=== PATIENT | male | born 1955 | race Caucasian/White ===

== ENCOUNTER 2017-06-24 13:33 | Emergency (ER) | payer OTHER ==
[2017-06-24] MEDS ORDERED: Lidocaine 2% Jelly 10 ML Urojet MUCMEM ONE (14:04)
[2017-06-24] MEDS ORDERED: HYDROmorphone 1 MG/ML Syringe IVPUSH ONE (14:04)
[2017-06-24] MEDS ORDERED: Metoclopramide 10 MG/2 ML SDV IVPUSH ONE (14:04)
--- NOTE | 2017-06-24 14:08 | EDM.PDOC ---
ED HPI GENERAL MEDICAL PROBLEM - General Chief Complaint: Genitourinary Problem Stated Complaint: UNABLE TO URINATE Time Seen by Provider: 06/24/17 14:03 Source of Information: Reports: Patient, Family (spouse) History Limitations: Reports: No Limitations - History of Present Illness INITIAL COMMENTS - FREE TEXT/NARRATIVE: 61-year-old male presents to the ED with severe lower abdominal cramping pain and strong feeling of need to void but unable to do so. He underwent a robotic surgery with removal of his prostate gland about 1 month ago. He had been voiding well and his bowels been working well since surgery. Today he has not voided since 0400 hrs. this morning has drank 2//20 ounce glasses of water with no urine. He states he pushes really hard at Jg standing can push out a drop or 2 of urine only. He is expressing severe bladder spasms at this time with no position being comfortable. It is so she with development of nausea but he has not vomited yet. The nurses did a bladder scan and found only 150 mils of urine within his bladder. Onset: Today Onset Date: 06/24/17 Onset Time: 04:00 Duration: Hour(s): (Last time he voided with Xeroform 100 hours this morning) Location: Reports: Abdomen (Lower abdomen particularly suprapubically into his back) Quality: Reports: Ache, Other Severity: Severe (Strong cramping colicky pain) Improves with: Reports: None ( 10 on a 10) Worsens with: Reports: Other (Sitting makes things worse.) Context: Reports: Other (His had total prostatectomy about a month ago by Dr. Kohler robotic surgery.). Denies: Activity, Exercise, Lifting, Sick Contact, Trauma Associated Symptoms: Denies: Confusion, Chest Pain, cough w sputum, Diaphoresis , Fever/Chills, Headaches, Loss of Appetite, Malaise, Nausea/Vomiting, Rash, Seizure, Shortness of Breath, Syncope Treatments POCK[employer]ED [employer]: Reports: Other (see below) (None.) Bladder Pain Score (Numeric/FACES): 5 - Related Data Allergies Allergy/AdvReac Type Severity Reaction Status Date / Time levofloxacin [From Levaquin] Allergy Cannot Verified 06/24/17 13:44 Remember atorvastatin calcium AdvReac Joint Pain Verified 06/24/17 13:44 [From Lipitor] bisoprolol fumarate AdvReac Joint Pain Verified 06/24/17 13:44 [From Ziac] hydrochlorothiazide AdvReac Joint Pain Verified 06/24/17 13:44 [From Ziac] hydrocodone AdvReac Seizure Verified 06/24/17 13:44 oxycodone [Oxycodone] AdvReac Seizure Verified 06/24/17 13:44 Home Meds: Home Meds Amoxicillin [Amoxil] 2,000 mg PO ASDIRECTED 06/24/17 [History] FLUoxetine [PROzac] 40 mg PO DAILY 06/24/17 [History] HYDROmorphone [Dilaudid] 2 mg PO Q12H PRN 06/24/17 [History] Lisinopril [Zestril] 20 mg PO BEDTIME 06/24/17 [History] Nitrofurantoin Monohyd/M-Cryst [Macrobid 100 mg Capsule] 100 mg PO BID #14 capsule 06/24/17 [Rx] Pantoprazole Sodium [Protonix] 40 mg PO DAILY 06/24/17 [History] Past Medical History Cardiovascular History: Reports: High Cholesterol, Hypertension Gastrointestinal History: Reports: GERD Genitourinary History: Reports: Other (See Below) Other Genitourinary History: prostrate cancer and had surgery for this one month ago Musculoskeletal History: Reports: Osteoarthritis, Other (See Below) Other Musculoskeletal History: back surgery Psychiatric History: Reports: Depression Dermatologic History: Reports: Other (See Below) Other Dermatologic History: squamous cell skin cancer - Past Surgical History Musculoskeletal Surgical History: Reports: Knee Replacement, Shoulder Surgery Social & Family History - Tobacco Use Smoking Status *Q: Never Smoker - Recreational Drug Use Recreational Drug Use: No - Living Situation & Occupation Living situation: Reports: Occupation: Employed [facility] GENERAL - Review of Systems Review Of Systems: See Below Constitutional: Denies: Fever, Chills, Malaise, Weakness, Fatigue, Decreased Appetite, Weight Loss HEENT: Reports: No Symptoms Respiratory: Reports: No Symptoms Cardiovascular: Reports: No Symptoms Endocrine: Reports: No Symptoms GI/Abdominal: Reports: Abdominal Pain, Distension, Nausea. Denies: Constipation (See history of present illness), Hematemesis, Hematochezia, Melena , Stool Incontinence, Vomiting, Other : Reports: Urinary Retention, Other (Very strong severe presumed bladder spasms.) Musculoskeletal: Reports: Back Pain Skin: Reports: No Symptoms (Low back pain associated with the cramping in the suprapubic area) Neurological: Reports: No Symptoms Psychiatric: Reports: No Symptoms Hematologic/Lymphatic: Reports: No Symptoms Immunologic: Reports: No Symptoms ED EXAM, GI/ABD - Physical Exam Exam: See Below Exam Limited By: No Limitations General Appearance: Alert, Severe Distress Eyes: Bilateral: Normal Appearance (He is in obvious severe distress with no physician comfortable. Doesn't know whether to stand or lie down but he cannot sit. No jaundice.) Respiratory/Chest: No Respiratory Distress, Lungs Clear, Normal Breath Sounds, No Accessory Muscle Use, Respiratory Distress (Mild tachypnea due to) Cardiovascular: Normal Peripheral Pulses ( mild hyperventilation), Regular Rate , Rhythm, No Edema, No Gallop, No JVD, No Murmur, No Rub GI/Abdominal Exam: Normal Bowel Sounds, No Organomegaly (Hypoactive bowel sounds ), Pelvis Stable, Tender (Suprapubically.), Abnormal Bowel Sounds, Other ( Abdominal ang firm to palpation and dull to percussion from the umbilicus to the suprapubic area.) (Male) Exam: No Hernia, Circumcised, Suprapubic Fullness (Clinically he has much more than 150 mils of urine in his bladder.). No: Penile Lesions, Rash, Scrotal Swelling, Scrotum Tenderness (L), Scrotum Tenderness (R) Back Exam: Normal Inspection. No: CVA Tenderness (L), CVA Tenderness (R) Extremities: Normal Inspection, Normal Range of Motion, Non-Tender, No Pedal Edema, Normal Capillary Refill Neurological: Alert, Oriented, CN II-XII Intact, Normal Cognition Psychiatric: Other Skin Exam: Warm, Dry, Intact (In a lot of pain), Normal Color, No Rash Course - Vital Signs Last Recorded V/S: Last Vital Signs Temp 36.7 C 06/24/17 13:44 Pulse 95 06/24/17 13:44 Resp 17 06/24/17 13:44 BP 151/84 H 06/24/17 13:44 Pulse Ox 97 06/24/17 13:44 - Orders/Labs/Meds Orders: Active Orders 24 hr Category Date Time Status Insert Witt Catheter [Insert Urinary Catheter] [OM.PC] Care 06/24/17 14:15 Ordered Q24H Urinary Catheter Assessment [RC] ASDIRECTED Care 06/24/17 14:05 Active Abdomen 1V Flat [CR] Stat Exams 06/24/17 14:05 Taken CULTURE URINE [RM] Stat Lab 06/24/17 14:35 Received Dextrose 5%-0.9% NaCl [Dextrose 5%-Normal Saline] 1,000 Med 06/24/17 14:15 Active ml IV ASDIRECTED Medication Orders Dextrose/Sodium Chloride (Dextrose 5%-Normal Saline) 1,000 mls @ 250 mls/hr IV ASDIRECTED STEPHANIE Last Admin: 06/24/17 14:13 Dose: 250 mls/hr Labs: Laboratory Tests 06/24/17 06/24/17 06/24/17 Range/Units 14:05 14:05 14:25 WBC 10.49 H (4.23-9.07) K/mm3 RBC 4.00 L (4.63-6.08) M/mm3 Hgb 11.4 L (13.7-17.5) gm/L Hct 34.9 L (40.1-51.0) % MCV 87.3 (79.0-92.2) fl MCH 28.5 (25.7-32.2) pg MCHC 32.7 (32.2-35.5) g/dl RDW Std Deviation 42.9 (35.1-43.9) fL Plt Count 274 (163-337) K/mm3 MPV 8.4 L (9.4-12.3) fl Neutrophils % (Manual) 73 H (40-60) % Band Neutrophils % 1 (0-10) % Lymphocytes % (Manual) 17 L (20-40) % Atypical Lymphs % 0 % Monocytes % (Manual) 7 (2-10) % Eosinophils % (Manual) 1 (0.8-7.0) % Basophils % (Manual) 1 (0.2-1.2) Platelet Estimate Adequate Plt Morphology Comment Normal RBC Morph Comment Normal Sodium 140 (136-145) mEq/L Potassium 3.7 (3.5-5.1) mEq/L Chloride 104 (98-107) mEq/L Carbon Dioxide 23 (21-32) mEq/L Anion Gap 16.7 H (5-15) BUN 17 (7-18) mg/dL Creatinine 1.2 (0.7-1.3) mg/dL Est Cr Clr Drug Dosing 70.59 mL/min Estimated GFR (MDRD) > 60 (>60) mL/min BUN/Creatinine Ratio 14.2 (14-18) Glucose 113 H (74-106) mg/dL Calcium 9.4 (8.5-10.1) mg/dL Total Bilirubin 0.4 (0.2-1.0) mg/dL AST 15 (15-37) U/L ALT 26 (16-63) U/L Alkaline Phosphatase 74 (46-116) U/L C-Reactive Protein 0.3 (<1.0) mg/dL Total Protein 7.3 (6.4-8.2) g/dl Albumin 3.8 (3.4-5.0) g/dl Globulin 3.5 gm/dL Albumin/Globulin Ratio 1.1 (1-2) Urine Color Yellow (Yellow) Urine Appearance Slt cloudy H (Clear) Urine pH 6.0 (5.0-8.0) Ur Specific [place] 1.025 (1.005-1.030) Urine Protein 1+ H (Negative) Urine Glucose (UA) Negative (Negative) Urine Ketones Negative (Negative) Urine Occult Blood 2+ H (Negative) Urine Nitrite Positive H (Negative) Urine Bilirubin Negative (Negative) Urine Urobilinogen 0.2 (0.2-1.0) Ur Leukocyte Esterase 1+ H (Negative) Urine RBC 0-5 (0-5) /hpf Urine WBC 40-50 H (0-5) /hpf Ur Epithelial Cells 5-10 H (0-5) /hpf Urine Bacteria Many H (FEW) /hpf Urine Mucus Not seen (FEW) /hpf Meds: Medications Generic Name Dose Route Start Last Admin Trade Name Freq PRN Reason Stop Dose Admin Dextrose/Sodium Chloride 1,000 mls @ 250 mls/hr 06/24/17 14:15 06/24/17 14:13 Dextrose 5%-Normal Saline IV 250 mls/hr ASDIRECTED STEPHANIE Administration Discontinued Medications Generic Name Dose Route Start Last Admin Trade Name Freq PRN Reason Stop Dose Admin Hydromorphone HCl 1 mg 06/24/17 14:04 06/24/17 14:14 Dilaudid IVPUSH 06/24/17 14:05 1 mg ONETIME ONE Administration Lidocaine HCl 10 ml 06/24/17 14:04 06/24/17 14:16 Xylocaine 2% Jelly MUCMEM 06/24/17 14:05 10 ml ONETIME ONE Administration Metoclopramide HCl 7.5 mg 06/24/17 14:04 06/24/17 14:14 Reglan IVPUSH 06/24/17 14:05 7.5 mg ONETIME ONE Administration Nitrofurantoin Macrocrystals 100 mg 06/24/17 15:14 Macrobid PO 06/24/17 15:15 ONETIME ONE - Radiology Interpretation Free Text/Narrative:: 61-year-old male brought to the ED by his with severe lower abdominal pain. Patient had to differential robotic surgery with total prostatectomy for cancer of the prostate about a month ago. He states he had been voiding fine up until today. He has not voided since 0400 hrs. this morning. Feels a strong need to void but unable to do so. He can push on his evidence clear without a few drops of urine only. His bowel function had returned to normal and he is no longer taking any pain medication. He drank 220 ounce glasses of water so far today with no voiding. Pain at present is 10 out of 10. Nurses did bladder scan informed only 150 mils of urine in the bladder of note this is a new machine. Clinically he is distended in the lower abdomen and tender compatible with retention. Plan he'll be given IV Dilaudid 1 mg IV and Reglan 7.5 mg IV for pain relief. He will have urogenital lidocaine instilled into the penile urethra and a Witt catheter will be placed and left in place until we see what kind of drainage get and whether or not it relieves his pain. - Re-Assessments/Exams Free Text/Narrative Re-Assessment/Exam: 06/24/17 14:35: The Dilaudid given IV was partially successful in relieving some of his abdominal spastic pain. Nurses got 325 mils of clear urine out of the bladder with Witt catheterization which is left in place. Therefore appears that the severe bladder spasms were causing his retention. He'll be to be done. 06/24/17 14:51 patient is completely pain-free after the Witt catheter was placed. The urine drainage is clear without any stone or clot. Therefore his retention must of been due to severe spasm of the bladder neck. I will await the results of the urinalysis. The KUB shows increased stool throughout the right hemicolon but no signs of significant constipation. 06/24/17 14:53 White count is 10.49 with 73% neutrophils 1% band cells hemoglobin is 11.4 platelet count is 274,000. Sodium 140 potassium 3.7 total 4 bicarbonate 23. And a gap is mildly elevated at 16.7. BUNs 17 creatinine is 1.2. EGFR is greater than 60. Glucose 113. The remainder the chemistry is normal. Urinalysis shows slightly cloudy urine with 1+ protein 2+ occult blood positive nitrates and 1+ positive leukocyte esterase. Micro is pending. 06/24/17 15:15 the micro-shows positive nitrates positive leukocyte esterase and 40-50 white cells per high-power field. Urine culture was ordered. Patient is allergic to Levaquin and therefore place him on Macrobid 100 mg twice daily for the next 7 days to clear up urinary tract infection. This may well been the cause of his bladder spasms and urinary retention. Plan will be to leave the Witt catheter in place for 48 hours and then it can be deflated and his can remove it. At this time the antibiotic she be working well house will write him a prescription for B&O suppositories that would can be compounded at her [facility] pharmacy and be utilized per rectum and as-needed basis for bladder spasms. Wrote a prescription for 10 of them. Departure - Departure Time of Disposition: 15:15 Disposition: Home, Self-Care 01 Condition: Fair Clinical Impression: Acute urinary retention, Painful bladder spasm Urinary tract infection Qualifiers: Urinary tract infection type: acute cystitis Hematuria presence: without hematuria Qualified Code(s): N30.00 - Acute cystitis without hematuria - Discharge Information Prescriptions: Nitrofurantoin Monohyd/M-Cryst [Macrobid 100 mg Capsule] 100 mg PO BID #14 capsule Referrals: Smita Alonso MD [Primary Care Provider] - Forms: ED Department Discharge Additional Instructions: Evaluation the emergency room today in regards to severe lower abdominal pain and bladder spasms. You underwent total prostatectomy about a month ago by Jered she will body surgery. No problems occur until today when you are unable to void since 4:00 this morning. Bladder scan showed only 150 mils of urine in the bladder but we drained over 325 mils. The urinalysis revealed positive white cell count with 40-50 white cells per high-power field strongly suggestive of infection. Therefore treatment will be antibiotic Macrobid 100 mg twice daily first dose was given in the ED and I would like you take one further tablet at bedtime tonight. He needs to be taken twice daily for 7 days. I would suggest a Witt catheter be left in for 48 hours and then be removed once the antibiotics have had time to work. I also did write a prescription for B and O suppositories that can be used per rectum every 6 hours as needed to relieve severe bladder spasms if required. Follow-up with personal physician or return to the ED if any further problems occur. - My Orders Last 24 Hours: My Active Orders 06/24/17 14:05 Urinary Catheter Assessment [RC] ASDIRECTED Abdomen 1V Flat [CR] Stat 06/24/17 14:15 Insert Witt Catheter [Insert Urinary Catheter] [OM.PC] Q24H Dextrose 5%-0.9% NaCl [Dextrose 5%-Normal Saline] 1,000 ml IV ASDIRECTED 06/24/17 14:35 CULTURE URINE [RM] Stat - Assessment/Plan Last 24 Hours: My Active Orders 06/24/17 14:05 Urinary Catheter Assessment [RC] ASDIRECTED Abdomen 1V Flat [CR] Stat 06/24/17 14:15 Insert Witt Catheter [Insert Urinary Catheter] [OM.PC] Q24H Dextrose 5%-0.9% NaCl [Dextrose 5%-Normal Saline] 1,000 ml IV ASDIRECTED 06/24/17 14:35 CULTURE URINE [RM] Stat
[2017-06-24] MEDS ORDERED: Dextrose 5%-0.9% NaCl 1,000 ML IV SCH (14:15)
[2017-06-24] MEDS ORDERED: Nitrofurantoin Monohydrate/Macrocrystalline 100 MG Cap PO ONE (15:14)
--- NOTE | 2017-06-24 15:27 | CR ---
Abdomen: Supine view of the abdomen was obtained. Comparison: No prior abdominal x-ray. Calcifications within the pelvis are felt compatible with phleboliths. Slight scoliosis is noted within the spine. Bowel gas pattern appears normal. No discrete soft tissue abnormality is seen. Impression: 1. Incidental findings. Diagnostic code #2
== END 2017-06-24 15:28 | disposition home or self-care (01) ==
LOC: JD.ED 13:33
DX: N30.00 Acute cystitis without hematuria (principal); N32.89 Other specified disorders of bladder; I10 Essential (primary) hypertension; Z88.1 Allergy status to other antibiotic agents; Z88.5 Allergy status to narcotic agent; Z88.8 Allergy status to other drugs, medicaments and biological substances; Z79.899 Other long term (current) drug therapy
CPT/HCPCS: 36415; 51702; 51798; 74000; 80053; 81001; 85025; 86140; 87086; 96361; 96374; 96375; 99284; A9270; J1170; J2765; J7042; 87088; 87186

== ENCOUNTER 2021-08-03 09:13 | Emergency (ER) | payer MEDICARE, OTHER ==
[2021-08-03] MEDS ORDERED: Sodium Chloride 0.9% 10 ML Syringe FLUSH PRN (09:35)
--- NOTE | 2021-08-03 10:17 | CR ---
Chest: Portable view of the chest was obtained. Comparison: No prior chest imaging is available. Heart size and mediastinum are normal. Lungs are clear with no acute parenchymal change. Bony structures show nothing acute. Impression: 1. Nothing acute is seen on portable chest x-ray. Diagnostic code #1
[2021-08-03 10:21] LABS: CORONAVIRUS COVID-19 NAA NEGATIVE (NEGATIVE)
--- NOTE | 2021-08-03 10:45 | EDM.PDOC ---
ED HPI GENERAL MEDICAL PROBLEM - General Chief Complaint: Respiratory Problem Stated Complaint: CHEST PAIN\SOB Time Seen by Provider: 08/03/21 09:37 Source of Information: Reports: Patient, RN Notes Reviewed - History of Present Illness INITIAL COMMENTS - FREE TEXT/NARRATIVE: 65 yr old male with cough, not feeling well for about 3 weeks. The last 2 days has been more short of breath. Mild chest tightness today without radiation. Has been vaccinated. No personal hx of CAD. Chest Pain Score (Numeric/FACES): 4 - Related Data Allergies Allergy/AdvReac Type Severity Reaction Status Date / Time levofloxacin [From Levaquin] Allergy Cannot Verified 08/03/21 09:28 Remember atorvastatin calcium AdvReac Joint Pain Verified 08/03/21 09:28 [From Lipitor] bisoprolol fumarate AdvReac Joint Pain Verified 08/03/21 09:28 [From Ziac] hydrochlorothiazide AdvReac Joint Pain Verified 08/03/21 09:28 [From Ziac] hydrocodone AdvReac Seizure Verified 08/03/21 09:28 oxycodone [Oxycodone] AdvReac Seizure Verified 08/03/21 09:28 Home Meds: Home Meds FLUoxetine [PROzac] 40 mg PO DAILY 06/24/17 [History] HYDROmorphone [Dilaudid] 2 mg PO Q12H PRN 06/24/17 [History] Pantoprazole Sodium [Protonix] 40 mg PO DAILY 06/24/17 [History] lisinopriL [Zestril] 20 mg PO BEDTIME 06/24/17 [History] Lisinopril/Hydrochlorothiazide [Lisinopril-Hctz 20-25 mg Tab] 1 tab PO DAILY 08/03/21 [History] Past Medical History HEENT History: Reports: Impaired Vision, Other (See Below) Other HEENT History: wears glasses Cardiovascular History: Reports: High Cholesterol, Hypertension Gastrointestinal History: Reports: GERD Genitourinary History: Reports: Other (See Below) Other Genitourinary History: prostrate cancer and had surgery for this one month ago Musculoskeletal History: Reports: Osteoarthritis, Other (See Below) Other Musculoskeletal History: back surgery Psychiatric History: Reports: Depression Dermatologic History: Reports: Other (See Below) Other Dermatologic History: squamous cell skin cancer - Past Surgical History Musculoskeletal Surgical History: Reports: Knee Replacement, Shoulder Surgery Social & Family History - Tobacco Use Tobacco Use Status *Q: Never Tobacco User - Caffeine Use Caffeine Use: Reports: Coffee - Recreational Drug Use Recreational Drug Use: No - Living Situation & Occupation Living situation: Reports: Occupation: Employed ED ROS GENERAL - Review of Systems Review Of Systems: See Below Constitutional: Denies: Fever, Chills HEENT: Reports: Other (Has had some mattering of L eye, swelling L lower eye lid) Respiratory: Reports: Shortness of Breath, Cough Cardiovascular: Reports: Chest Pain GI/Abdominal: Denies: Abdominal Pain, Nausea, Vomiting Musculoskeletal: Denies: Neck Pain, Shoulder Pain, Back Pain Skin: Reports: No Symptoms Neurological: Denies: Dizziness ED EXAM, GENERAL - Physical Exam Exam: See Below General Appearance: Alert, No Apparent Distress Throat/Mouth: Normal Inspection Neck: Supple. No: Lymphadenopathy (L), Lymphadenopathy (R) Respiratory/Chest: No Respiratory Distress, Lungs Clear, Normal Breath Sounds. No: Rales, Rhonchi, Wheezing Cardiovascular: Regular Rate, Rhythm GI/Abdominal: Soft, Non-Tender Extremities: Normal Inspection. No: Pedal Edema, Leg Pain, Redness Neurological: Alert, Oriented, Memory Loss Remote Events Skin Exam: Warm, Dry, Normal Color #1 Interpretation EKG Date: 08/03/21 Rhythm: NSR [place]: Normal P-Wave: Present QRS: Normal ST-T: Normal QT: Normal Course - Vital Signs Last Recorded V/S: Last Vital Signs Temp 96.2 F L 08/03/21 09:31 Pulse 86 08/03/21 09:31 Resp 13 08/03/21 09:31 BP 150/88 H 08/03/21 09:31 Pulse Ox 97 08/03/21 09:31 - Orders/Labs/Meds Orders: Active Orders 24 hr Category Date Time Status Peripheral IV Insertion Adult [OM.PC] Stat Oth 08/03/21 09:36 Ordered Labs: Laboratory Tests 08/03/21 08/03/21 08/03/21 Range/Units 09:25 09:45 09:45 WBC 7.12 (4.23-9.07) K/mm3 RBC 4.65 (4.63-6.08) M/mm3 Hgb 13.3 L D (13.7-17.5) gm/dl Hct 40.5 (40.1-51.0) % MCV 87.1 (79.0-92.2) fl MCH 28.6 (25.7-32.2) pg MCHC 32.8 (32.2-35.5) g/dl RDW Std Deviation 41.3 (35.1-43.9) fL Plt Count 202 (163-337) K/mm3 MPV 8.8 L (9.4-12.3) fl Neut % (Auto) 70.4 H (34.0-67.9) % Lymph % (Auto) 19.4 L (21.8-53.1) % Evans % (Auto) 8.0 (5.3-12.2) % Eos % (Auto) 1.3 (0.8-7.0) Baso % (Auto) 0.6 (0.1-1.2) % Neut # (Auto) 5.02 (1.78-5.38) K/mm3 Lymph # (Auto) 1.38 (1.32-3.57) K/mm3 Evans # (Auto) 0.57 (0.30-0.82) K/mm3 Eos # (Auto) 0.09 (0.04-0.54) K/mm3 Baso # (Auto) 0.04 (0.01-0.08) K/mm3 PT 10.3 (9.7-12.0) SECONDS INR 0.93 D-Dimer, Quantitative 0.47 (0.19-0.50) mg/L Sodium (136-145) mEq/L Potassium (3.5-5.1) mEq/L Chloride (98-107) mEq/L Carbon Dioxide (21-32) mEq/L Anion Gap (5-15) BUN (7-18) mg/dL Creatinine (0.7-1.3) mg/dL Est Cr Clr Drug Dosing mL/min Estimated GFR (MDRD) (>60) mL/min BUN/Creatinine Ratio (14-18) Glucose (70-99) mg/dL Calcium (8.5-10.1) mg/dL Magnesium (1.8-2.4) mg/dL Total Bilirubin (0.2-1.0) mg/dL AST (15-37) U/L ALT (16-63) U/L Alkaline Phosphatase (46-116) U/L Troponin I (0.00-0.056) ng/mL C-Reactive Protein (<1.0) mg/dL Total Protein (6.4-8.2) g/dl Albumin (3.4-5.0) g/dl Globulin gm/dL Albumin/Globulin Ratio (1-2) Influenza Type A RNA Negative (NEGATIVE) RSV RNA (INAAT) Negative (NEGATIVE) Influenza Type B RNA Negative (NEGATIVE) SARS-CoV-2 RNA (HEMA) Negative (NEGATIVE) 08/03/21 08/03/21 Range/Units 09:45 09:45 WBC (4.23-9.07) K/mm3 RBC (4.63-6.08) M/mm3 Hgb (13.7-17.5) gm/dl Hct (40.1-51.0) % MCV (79.0-92.2) fl MCH (25.7-32.2) pg MCHC (32.2-35.5) g/dl RDW Std Deviation (35.1-43.9) fL Plt Count (163-337) K/mm3 MPV (9.4-12.3) fl Neut % (Auto) (34.0-67.9) % Lymph % (Auto) (21.8-53.1) % Evans % (Auto) (5.3-12.2) % Eos % (Auto) (0.8-7.0) Baso % (Auto) (0.1-1.2) % Neut # (Auto) (1.78-5.38) K/mm3 Lymph # (Auto) (1.32-3.57) K/mm3 Evans # (Auto) (0.30-0.82) K/mm3 Eos # (Auto) (0.04-0.54) K/mm3 Baso # (Auto) (0.01-0.08) K/mm3 PT (9.7-12.0) SECONDS INR D-Dimer, Quantitative (0.19-0.50) mg/L Sodium 141 (136-145) mEq/L Potassium 3.3 L (3.5-5.1) mEq/L Chloride 105 (98-107) mEq/L Carbon Dioxide 27 (21-32) mEq/L Anion Gap 12.3 (5-15) BUN 18 (7-18) mg/dL Creatinine 1.3 (0.7-1.3) mg/dL Est Cr Clr Drug Dosing 61.95 mL/min Estimated GFR (MDRD) 56 (>60) mL/min BUN/Creatinine Ratio 13.8 L (14-18) Glucose 150 H (70-99) mg/dL Calcium 8.8 (8.5-10.1) mg/dL Magnesium 1.9 (1.8-2.4) mg/dL Total Bilirubin 0.7 (0.2-1.0) mg/dL AST 21 (15-37) U/L ALT 32 (16-63) U/L Alkaline Phosphatase 69 (46-116) U/L Troponin I < 0.017 (0.00-0.056) ng/mL C-Reactive Protein <0.2 (<1.0) mg/dL Total Protein 6.6 (6.4-8.2) g/dl Albumin 3.6 (3.4-5.0) g/dl Globulin 3.0 gm/dL Albumin/Globulin Ratio 1.2 (1-2) Influenza Type A RNA (NEGATIVE) RSV RNA (INAAT) (NEGATIVE) Influenza Type B RNA (NEGATIVE) SARS-CoV-2 RNA (HEMA) (NEGATIVE) Meds: Medications Discontinued Medications Generic Name Dose Route Start Last Admin Trade Name Freq PRN Reason Stop Dose Admin Sodium Chloride 10 ml 08/03/21 09:35 08/03/21 10:12 Sodium Chloride 0.9% 10 Ml Syringe FLUSH 10 ml ASDIRECTED PRN Administration Keep Vein Open - Re-Assessments/Exams Free Text/Narrative Re-Assessment/Exam: 08/03/21 15:12 WBC, trop, CXR normal, covid neg. Departure - Departure Time of Disposition: 11:24 Disposition: Home, Self-Care 01 Condition: Fair Clinical Impression: Bronchitis Conjunctivitis Qualifiers: Conjunctivitis type: acute Acute conjunctivitis type: unspecified Laterality: left Qualified Code(s): H10.32 - Unspecified acute conjunctivitis, left eye - Discharge Information Instructions: Bacterial Conjunctivitis, Adult, [id number], Acute Bronchitis, Adult, [id number] Referrals: Smita Alonso MD [Primary Care Provider] - Forms: ED Department Discharge Additional Instructions: Z Pack for 5 days or until gone. Vaporizer or steam as needed. Follow up clinic if not much better within 5 to 7 days as expected. Return to ED as needed if symptoms worsening in any way. Sepsis Event Note (ED) - Evaluation Sepsis Screening Result: No Definite Risk - Focused Exam Vital Signs: Vital Signs Temp Pulse Resp BP Pulse Ox 08/03/21 09:31 96.2 F L 86 13 150/88 H 97 - My Orders Last 24 Hours: My Active Orders 08/03/21 09:36 Peripheral IV Insertion Adult [OM.PC] Stat - Assessment/Plan Last 24 Hours: My Active Orders 08/03/21 09:36 Peripheral IV Insertion Adult [OM.PC] Stat
== END 2021-08-03 11:47 | disposition home or self-care (01) ==
LOC: JD.ED 09:13
DX: J40 Bronchitis, not specified as acute or chronic (principal); H10.32 Unspecified acute conjunctivitis, left eye; E78.00 Pure hypercholesterolemia, unspecified; I10 Essential (primary) hypertension; K21.9 Gastro-esophageal reflux disease without esophagitis; Z88.1 Allergy status to other antibiotic agents; Z88.5 Allergy status to narcotic agent; Z88.8 Allergy status to other drugs, medicaments and biological substances; Z79.899 Other long term (current) drug therapy; Z20.822 Contact with and (suspected) exposure to COVID-19
CPT/HCPCS: 0241U; 36415; 71045; 80053; 83735; 84484; 85025; 85379; 85610; 86140; 93005; 99284

== ENCOUNTER 2023-03-23 10:29 | Emergency (ER) | payer MEDICARE, OTHER | END 2023-03-23 15:22 | disposition home or self-care (01) | LOC: JD.ED 10:29 | DX: R58 Hemorrhage, not elsewhere classified (principal); E66.9 Obesity, unspecified; K21.9 Gastro-esophageal reflux disease without esophagitis; M19.90 Unspecified osteoarthritis, unspecified site; I10 Essential (primary) hypertension; Z79.82 Long term (current) use of aspirin; Z79.899 Other long term (current) drug therapy; Z88.1 Allergy status to other antibiotic agents; Z88.8 Allergy status to other drugs, medicaments and biological substances; Z68.37 Body mass index [BMI] 37.0-37.9, adult | CPT/HCPCS: 93971-26-RT; 93971-RT; 99283 ==